=== PATIENT | female | born 1990 | race African-American/Black ===

== ENCOUNTER 2022-04-01 06:55 | Observation (INO) | payer SELFPAY ==
[2022-04-01] MEDS ORDERED: Acetaminophen 325 MG TAB PO PRN (09:39)
[2022-04-01] MEDS ORDERED: Senokot S 8.6-50 MG TAB PO PRN (09:39)
[2022-04-01] MEDS ORDERED: Ondansetron PF 4 MG/2 ML Vial IVP PRN (09:39)
[2022-04-01] MEDS ORDERED: Bisacodyl 10 MG SUPP PR PRN (09:39)
[2022-04-01 09:56] VITALS: BMI 32.3
[2022-04-01] MEDS: Lactated Ringer's 1,000 ML IV SCH (10:06)
[2022-04-01 12:51] LABS: Troponin I Less than 0.010 ng/mL (< 0.028)
[2022-04-01] MEDS: Morphine 4 MG/ML VIAL SLOW IVP PRN (18:19)
[2022-04-02] MEDS: Lactated Ringer's 1,000 ML IV SCH (03:31)
[2022-04-02 05:49] LABS: #Eosinphils 0.1 thou/uL (0.0-0.7); #Lymphocytes 2.7 thou/uL (1.20-3.40); #Monocytes 0.6 thou/uL (0.11-0.59); #Neutrophils 2.3 thou/uL (1.40-6.50); %Basophils 0.6 % (0.0-1.0); %Eosinophils 2.5 % (0.0-10.0); %Monocytes 9.6 % (0.0-10.0); %Neutrophils 40.3 % (42.0-75.0); Hemoglobin 10.6 g/dL (12.0-16.0); Mean Corpuscular HGB CONC 33.4 g/dL (32.0-36.0); Mean Corpuscular Hemoglobin 31.6 pg (27.0-31.0); Mean Corpuscular Volume 94.9 fl (78.0-98.0); Mean Platelet Volume 8.4 fL (7.4-10.4); Platelet Count 258 10x3/uL (130-400); RBC Distribution Width 11.4 % (11.5-14.5); Red Blood Cell (RBC) Count 3.36 mill/uL (4.20-5.40); White Blood Cell (WBC) Count 5.7 10x3/uL (4.8-10.8)
[2022-04-02 06:06] LABS: Anion Gap 9 mmol/L (10-20); BUN (Urea Nitrogen) 8 mg/dL (7.0-18.7); Calc. Creatinine Clearance 145 mL/min (70-130); Calcium 8.6 mg/dL (7.8-10.44); Carbon Dioxide 25 mmol/L (22-29); Chloride 108 mmol/L (98-107); Estimated GFR 101; Glucose 90 mg/dL (70-105); Potassium 3.7 mmol/L (3.5-5.1); Sodium 138 mmol/L (136-145)
[2022-04-02] MEDS: Morphine 4 MG/ML VIAL SLOW IVP PRN (08:12)
[2022-04-02] MEDS ORDERED: Enoxaparin Sodium 40 MG/0.4 ML SYRINGE SC SCH (09:00)
[2022-04-02] MEDS ORDERED: Iopamidol-370 76% 500 ML 1 ML ONE (10:22)
[2022-04-02] MEDS ORDERED: Pantoprazole 40 MG VIAL IVP SCH ×2 (11:00→21:00)
[2022-04-02] MEDS ORDERED: Lidocaine 2% Viscous Solution 10 ML, Aluminum & Magnesium Hydroxide 30 ML SSW SCH (11:00)
[2022-04-02 11:49] LABS: Troponin I Less than 0.010 ng/mL (< 0.028)
[2022-04-02 16:26] VITALS: BP 105/74; TEMP 97.9
== END 2022-04-02 17:56 | disposition home or self-care (01) ==
LOC: SURG A 09:07
PROVIDERS: ADMIT Internal Medicine; ATTEND Internal Medicine
DX: R10.13 Epigastric pain (principal); E66.9 Obesity, unspecified; Z68.32 Body mass index [BMI] 32.0-32.9, adult; Z97.5 Presence of (intrauterine) contraceptive device; Z20.822 Contact with and (suspected) exposure to COVID-19
CPT/HCPCS: 36415; 71275; 76705; 78227; 80048; 83690; 84484; 85025; 85379; 87804; 93005; 93010; 96361; 96374; 96376; A9537; G0378; J2270; J7120; Q9967; U0003; U0005